=== PATIENT | male | born 1960 | race Two or more races ===

== ENCOUNTER 2022-12-31 16:03 | Inpatient (IN) | payer MEDICAID, OTHER ==
[~2022-12-31] VITALS: Ht 170.2 cm; Wt 84.8 kg
[2022-12-31 17:50] LABS: BASOPHILS % 0.5 % (0.0-2.0); EOSINOPHILS % 0.2 % (0.0-5.0); HEMATOCRIT. 43.4 % (42.0-52.0); LYMPHOCYTES % 9.6 % (20.0-50.0); MEAN CORPUSCULAR HEMOGLOBIN 27.9 pg (28.0-32.0); MEAN CORPUSCULAR VOLUME 80.9 fL (80.0-94.0); MEAN PLATELET VOLUME 8.8 fl (7.4-10.4); MONOCYTES % 4.2 % (2.0-8.0); NEUTROPHILS % 85.5 % (40.0-76.0); PLATELET 230 x1000/uL (130-400); RED BLOOD CELL COUNT 5.37 mill/uL (4.7-6.1); RED CELL DISTRIBUTION WIDTH 15.2 % (11.6-14.6)
[2022-12-31 17:57] LABS: CHLORIDE 104 mEq/L (98-107)
[2022-12-31] MEDS ORDERED: LABETALOL 5MG/ML SYR 20 MG/4 ML SYRINGE IV ONE (18:30)
[2022-12-31] MEDS ORDERED: NICARDIPINE 40MG/200ML PREMIX 200 ML IV ONE (18:30)
[2022-12-31] MEDS: DEXT 5%/LACTATED RINGERS 1,000 ML IV SCH (18:45)
[2022-12-31] MEDS ORDERED: LEVETIRACETAM 1,000 MG in SODIUM CHLORIDE 0.9% 100 ML IV SCH (18:45)
[2022-12-31] MEDS ORDERED: NICARDIPINE 40MG/200ML PREMIX 200 ML IV NR (18:45)
[2022-12-31] MEDS ORDERED: NICARDIPINE 100 MG in SODIUM CHLORIDE 0.9% 60 ML IV PRN (18:45)
[2022-12-31] MEDS ORDERED: LEVETIRACETAM 1000MG PREMIX 100 ML IV NR (19:00)
[2022-12-31 19:03] LABS: PARTIAL THROMBOPLASTIN TIME 31.1 sec (23.4-31.0); PROTHROMBIN TIME 11.1 sec (9.6-11.0)
[2023-01-01] VITALS (29 sets, daily range): BP systolic 107–180; BP diastolic 55–125
[2023-01-01] MEDS: DEXAMETHASONE 4MG/ML 1ML VIAL IV SCH ×3 (06:26→12:17)
[2023-01-01] MEDS ORDERED: LEVETIRACETAM 500MG PREMIX 100 ML IV SCH (09:00)
[2023-01-01] MEDS ORDERED: ONDANSETRON HCL 4MG/2ML INJ IV PRN (09:45)
[2023-01-01] MEDS ORDERED: ACETAMINOPHEN 325MG TABLET PO PRN (09:45)
[2023-01-01] MEDS: DEXT 5%/LACTATED RINGERS 1,000 ML IV SCH (11:28)
[2023-01-01] MEDS: NICARDIPINE 100 MG in SODIUM CHLORIDE 0.9% 60 ML IV PRN (18:32)
[2023-01-01] MEDS ORDERED: POTASSIUM CHLORIDE 20MEQ TABLET SR PO NR (19:30)
[2023-01-01] MEDS: LEVETIRACETAM 500MG PREMIX 100 ML IV SCH (21:27)
[2023-01-01] MEDS: LABETALOL HCL 200MG TABLET PO SCH (23:15)
[2023-01-02] VITALS (80 sets, daily range): BP systolic 89–171; BP diastolic 45–110
[2023-01-02] MEDS: DEXAMETHASONE 4MG/ML 1ML VIAL IV SCH ×4 (00:14→17:17)
[2023-01-02] MEDS: NICARDIPINE 100 MG in SODIUM CHLORIDE 0.9% 60 ML IV PRN (00:15)
[2023-01-02] MEDS: DEXT 5%/LACTATED RINGERS 1,000 ML IV SCH (04:05)
[2023-01-02 05:38] LABS: HEMATOCRIT. 43.4 % (42.0-52.0); HEMOGLOBIN. 14.5 g/dL (14.0-18.0); MEAN CORPUSCULAR HEMOGLOBIN 27.6 pg (28.0-32.0); MEAN CORPUSCULAR VOLUME 82.5 fL (80.0-94.0); PLATELET 274 x1000/uL (130-400); RED BLOOD CELL COUNT 5.26 mill/uL (4.7-6.1); RED CELL DISTRIBUTION WIDTH 15.3 % (11.6-14.6)
[2023-01-02 05:47] LABS: CHLORIDE 109 mEq/L (98-107)
[2023-01-02 05:55] LABS: HDL CHOLESTEROL 54 mg/dL (40-59); LDL CHOLESTEROL 142 mg/dL (5-100)
[2023-01-02] MEDS: AMLODIPINE 10MG TABLET PO SCH (08:09)
[2023-01-02] MEDS: LEVETIRACETAM 500MG PREMIX 100 ML IV SCH ×2 (08:09→21:23)
[2023-01-02] MEDS: LABETALOL HCL 200MG TABLET PO SCH ×2 (08:27→20:59)
[2023-01-02] MEDS ORDERED: HYDRALAZINE HCL 100MG TABLET PO NR (08:30)
[2023-01-02 13:02] LABS: PLATELET ESTIMATE NORMAL
[2023-01-02] MEDS: HYDRALAZINE HCL 100MG TABLET PO SCH ×2 (13:43→20:58)
[2023-01-02] MEDS: CLONIDINE 0.1MG TABLET PO PRN (17:18)
[2023-01-03 04:00] VITALS: BP 139/83
[2023-01-03] MEDS: HYDRALAZINE HCL 100MG TABLET PO SCH ×3 (06:43→21:18)
[2023-01-03 08:00] VITALS: BP 147/80
[2023-01-03] MEDS: LABETALOL HCL 200MG TABLET PO SCH ×2 (08:22→21:17)
[2023-01-03] MEDS: LEVETIRACETAM 500MG PREMIX 100 ML IV SCH ×2 (08:22→21:00)
[2023-01-03] MEDS: AMLODIPINE 10MG TABLET PO SCH (08:22)
[2023-01-03 12:00] VITALS: BP 128/81
[2023-01-03 16:00] VITALS: BP 130/75
[2023-01-03 20:00] VITALS: BP 161/101
[2023-01-04] VITALS (7 sets, daily range): BP systolic 123–163; BP diastolic 8–102
[2023-01-04] MEDS: HYDRALAZINE HCL 100MG TABLET PO SCH ×3 (06:00→21:39)
[2023-01-04] MEDS: AMLODIPINE 10MG TABLET PO SCH (08:04)
[2023-01-04] MEDS: LEVETIRACETAM 500MG PREMIX 100 ML IV SCH (08:04)
[2023-01-04] MEDS: CLONIDINE 0.1MG TABLET PO PRN (08:05)
[2023-01-04] MEDS: LABETALOL HCL 200MG TABLET PO SCH ×2 (08:05→20:46)
[2023-01-04] MEDS ORDERED: ENOXAPARIN 40MG/0.4ML SYR SUBCUT SCH (18:00)
[2023-01-04] MEDS: LEVETIRACETAM 500MG TABLET PO SCH (20:46)
[2023-01-05] VITALS: BP 117/81
[2023-01-05 04:00] VITALS: BP 147/85
[2023-01-05 05:58] LABS: BASOPHILS % 0.1 % (0.0-2.0); EOSINOPHILS % 0.8 % (0.0-5.0); HEMATOCRIT. 40.1 % (42.0-52.0); HEMOGLOBIN. 13.8 g/dL (14.0-18.0); LYMPHOCYTES % 29.6 % (20.0-50.0); MEAN CORPUSCULAR HEMOGLOBIN 28.3 pg (28.0-32.0); MEAN CORPUSCULAR VOLUME 82.4 fL (80.0-94.0); MEAN PLATELET VOLUME 9.3 fl (7.4-10.4); MONOCYTES % 8.4 % (2.0-8.0); NEUTROPHILS % 61.1 % (40.0-76.0); PLATELET 171 x1000/uL (130-400); RED BLOOD CELL COUNT 4.87 mill/uL (4.7-6.1); RED CELL DISTRIBUTION WIDTH 15.5 % (11.6-14.6)
[2023-01-05] MEDS: HYDRALAZINE HCL 100MG TABLET PO SCH (06:27)
[2023-01-05 08:00] VITALS: BP 162/100
[2023-01-05] MEDS: LABETALOL HCL 200MG TABLET PO SCH (08:28)
[2023-01-05] MEDS: LEVETIRACETAM 500MG TABLET PO SCH (08:28)
[2023-01-05] MEDS: AMLODIPINE 10MG TABLET PO SCH (08:28)
[2023-01-05 08:39] LABS: CHLORIDE 105 mEq/L (98-107)
[2023-01-05 12:00] VITALS: BP 126/82
[2023-01-05] MEDS ORDERED: KEPP500 PO (14:55)
[2023-01-05] MEDS ORDERED: LABE200T9 PO (14:55)
[2023-01-05] MEDS ORDERED: HYDR100T26 PO (14:55)
[2023-01-05] MEDS ORDERED: AMLO10TA80 PO (14:55)
[2023-01-05] MEDS ORDERED: LIP40 PO (14:55)
[2023-01-05 16:00] VITALS: BP 179/100
[2023-01-05 17:36] VITALS: BP 132/69
[2023-01-05] MEDS ORDERED: ATORVASTATIN CALCIUM 40MG TABLET PO SCH (21:00)
== END 2023-01-05 18:30 | disposition home or self-care (01) | DRG 44 ==
LOC: ER 16:03 → MICUSO 21:31 → EDBEDREQ 21:45 → MICUSO 01-01 17:41 → 7WST 01-02 18:15
PROVIDERS: ADMIT Internal Medicine; ATTEND Internal Medicine
DX: I61.8 Other nontraumatic intracerebral hemorrhage (principal); G81.91 Hemiplegia, unspecified affecting right dominant side; I16.1 Hypertensive emergency; E87.6 Hypokalemia; E78.00 Pure hypercholesterolemia, unspecified; R53.81 Other malaise; R73.9 Hyperglycemia, unspecified; E78.5 Hyperlipidemia, unspecified; I10 Essential (primary) hypertension; Z79.82 Long term (current) use of aspirin; Z82.49 Family history of ischemic heart disease and other diseases of the circulatory system
CPT/HCPCS: 36415; 71045; 80048; 80053; 80061; 82962; 84484; 85025; 86850; 86900; 92523; 97116; 97162; 97166; 99291; J1100; J1650; J1953; J3490; J7050